=== PATIENT | male | born 2000 | race Hispanic/Latino ===

== ENCOUNTER 2023-07-21 00:36 | Emergency (ER) | payer OTHER, SELFPAY ==
[2023-07-21 00:41] VITALS: BP 180/78; PULSE 120; RESP 20; TEMP 36.4; O2SAT 98; BMI 37.4
[2023-07-21 00:59] LABS: UR Morphine/Opiate cutoff 300 Negative (Negative); Ur Creatinine Normal (Normal); Ur Specific Gravity Normal (Normal); Urine Amphetamines Negative (Negative); Urine Barbiturates Negative (Negative); Urine Benzodiazepines Negative (Negative); Urine Cocaine Negative (Negative); Urine MDMA Negative (Negative); Urine Methadone Negative (Negative); Urine Methamphetamines Negative (Negative); Urine Oxycodone Negative (Negative); Urine Phencyclidine Negative (Negative); Urine Tetrahydrocannabinol Negative (Negative); Urine Tricyclic Antidepressant Negative (Negative); Urine pH Normal (Normal)
[2023-07-21 01:10] LABS: Appearance Urine UA CLEAR; Bilirubin Urine UA NEGATIVE (NEGATIVE); Color Urine UA YELLOW; Glucose Urine UA NEGATIVE (Negative); Ketones Urine UA NEGATIVE (NEGATIVE); Leukocyte Esterase Urine UA NEGATIVE (NEGATIVE); Nitrite Urine UA NEGATIVE (Negative); Occult Blood Urine UA NEGATIVE (Negative); Protein Urine UA NEGATIVE (Negative); Specific Gravity Urine UA <=1.005 (1.000-1.035); Urobilinogen Urine UA 0.2 E.U./dL (0.2); pH Urine UA 5.5 (4.5-8.0)
[2023-07-21 01:25] LABS: Add Manual Diff / Slide Review NO; Basophils Absolute Auto 0 /uL (0-100); Basophils Percent Auto 0.3 % (0-2); Eosinophils Absolute Auto 100 /uL (0-450); Eosinophils Percent Auto 1.4 % (2-4); Hematocrit 43.5 % (41-53); Hemoglobin 15.1 g/dL (13.5-17.5); Lymphocytes Absolute Auto 2900 /uL (1100-4500); Lymphocytes Percent Auto 38.7 % (25-40); Mean Corpuscular HGB Conc 34.7 % (30-36); Mean Corpuscular Hemoglobin 33.6 PG (26-34); Mean Corpuscular Volume 96.8 fL (80-100); Monocytes Absolute Auto 500 /uL (0-900); Monocytes Percent Auto 7.2 % (3-14); Neutrophils Absolute Auto 4000 /uL (1500-7000); Neutrophils Percent Auto 52.4 % (50-75); Platelet Count 194 X10^3/uL (150-400); Red Blood Cell Count 4.49 X10^6/uL (4.5-5.9); Red Cell Distribution Width 13.1 % (11.6-14.8); White Blood Cell Count 7.6 X10^3/uL (4.5-11.0)
[2023-07-21 01:26] LABS: Bacteria Urine None Seen; Culture Indicated Urine Cult Not Indicated; RBC Urine None Seen (0-5/HPF); Squamous Epithelial Cell Urine None Seen (0-5/HPF); WBC Urine None Seen (0-5/HPF)
[2023-07-21 01:29] LABS: Acetaminophen < 10 ug/mL (10-30); Alanine Aminotransferase 70 IU/L (<50); Albumin 4.5 g/dL (3.5-5.0); Albumin Globulin Ratio 1.8 (1.0-2.8); Alkaline Phosphatase 64 U/L (38-126); Aspartate Aminotransferase 33 IU/L (17-59); BUN Creatinine Ratio 11.5 (6-22); Bilirubin Total 0.5 mg/dL (0.2-1.3); Blood Urea Nitrogen 11 mg/dL (9-20); Calcium 8.8 mg/dL (8.4-10.2); Carbon Dioxide 21 mmol/L (22-32); Chloride 101 mmol/L (98-107); Estimated Glomerular Filt Rate > 60 mL/min (>60); Ethanol (ETOH) 270 mg/dL; Globulin 2.5 g/dL (1.7-4.1); Glucose 109 mg/dL (70-100); HEMOLYSIS < 15 (0-50); Potassium 3.6 mmol/L (3.4-5.1); Salicylate < 1.0 mg/dL (<20); Sodium 137 mmol/L (137-145)
[2023-07-21 01:40] VITALS: O2SAT 74
[2023-07-21 01:46] VITALS: BP 132/61; PULSE 103; RESP 18; O2SAT 91
--- NOTE | 2023-07-21 01:49 | PC.NURSE ---
Pt placed on 3L nasal cannula with spO2 >90%. Pt noted to be 74% on RA with snorous respirations. Pt with HOB elevated to about 75 degrees.
[2023-07-21 02:06] LABS: Free T4, Direct Thyroxine 1.36 ng/dL (0.78-2.19)
[2023-07-21 02:21] LABS: Thyroid Stimulating Hormone 2.81 uIU/mL (0.47-4.68)
[2023-07-21 02:42] VITALS: BP 142/60; PULSE 107; RESP 18; O2SAT 96
--- NOTE | 2023-07-21 03:36 | ED_ITS ---
HPI - Altered Mental Status General Chief Complaint: Altered Mental Status Stated Complaint: altered Time Seen by Provider: 07/21/23 01:03 Source: patient and EMS Mode of arrival: Ambulatory History of Present Illness HPI narrative: 23-year-old male nonsmoker admits to drinking alcohol presents by EMS after being found at a local assisted facility. He admits that he had been drinking at a bar and wandered into the lobby and was found sleeping. EMS was called and found him, slurring his words in acting a bit altered. He does not admit to drinking alcohol but denies use of street drugs. He denies any headache, neck pain, trouble breathing no recent trauma or injury. He denies other medical problems. He has no suicidal or homicidal ideations. Review of Systems Review of Systems Narrative: GENERAL: See HPI HEENT: Denies sinus pain, ear pain, sore throat, difficulty swallowing, dizziness. RESPIRATORY: Denies dyspnea, cough, wheezing, hemoptysis, sputum. CARDIOVASCULAR: Denies chest pain, palpitations, orthopnea, edema, GASTROINTESTINAL: Denies nausea, vomiting, abdominal pain, diarrhea, constipation, melena. : Denies dysuria, frequency, incontinence, hematuria, urinary retention. MUSCULOSKELETAL: denies weakness, joint pain, or bony pain SKIN: Denies rash, skin lesions, or other NEUROLOGIC: Denies weakness, headache, numbness, change in speech, confusion, seizures, incoordination. PSYCHIATRIC: No concerning psychosocial issues. 12 point review of systems is negative except for those stated above Patient History Alcohol type: hard liquor Exam Narrative Exam Narrative: GENERAL: [23] year old patient appears stated age. Well-developed patient, bit of an unsteady gait and slurring his words, smells of alcohol s. HEAD: Atraumatic. Normocephalic. No contusion, abrasion or hematoma EYES: Pupils equal round and reactive. Extraocular motions intact. No scleral icterus. No injection or drainage. ENT: Nose without bleeding, purulent drainage. Throat without erythema, tonsillar hypertrophy or exudate. Airway patent. NECK: Trachea midline. Non tender CARDIOVASCULAR: Regular rate and rhythm without murmurs, gallops, or rubs. RESPIRATORY: Clear to auscultation. Breath sounds equal bilaterally. No wheezes, rales, or rhonchi. GASTROINTESTINAL: Abdomen soft, non-tender, nondistended. EXTREMITIES: No edema or joint tenderness. BACK: Nontender without deformity or crepitance. No flank tenderness. NEURO: AOx3. SKIN: No rash or erythema of visible areas Initial Vital Signs Initial Vital Signs: Vital Signs Temperature 97.5 F L 07/21/23 00:41 Pulse Rate 120 H 07/21/23 00:41 Respiratory Rate 20 07/21/23 00:41 Blood Pressure 180/78 H 07/21/23 00:41 Pulse Oximetry 98 07/21/23 00:41 Oxygen Delivery Method Room Air 07/21/23 00:41 Course Orders Ordered: ED Orders 07/21/23 00:43 UA Complete [Urinalysis and Microscopic] Stat Urine Drug Screen, Rapid Stat 07/21/23 01:03 Acetaminophen Stat Complete Blood Count AUTO DIFF Stat Comprehensive Metabolic Panel Stat Ethanol (ETOH) Stat Free T4, Direct Thyroxine Stat Salicylate Stat Thyroid Stimulating Hormone Stat Vital Signs Vital signs: Vital Signs - 8 hr 07/21/23 00:41 07/21/23 01:40 07/21/23 01:46 Temperature 97.5 F L Pulse Rate 120 H 103 H Respiratory Rate 20 18 Blood Pressure 180/78 H 132/61 Pulse Oximetry 98 74 L 91 Oxygen Delivery Method Room Air Room Air Nasal Cannula Oxygen Flow Rate 3 07/21/23 02:42 07/21/23 04:27 Temperature Pulse Rate 107 H 95 H Respiratory Rate 18 99 H Blood Pressure 142/60 H 119/50 L Pulse Oximetry 96 99 Oxygen Delivery Method Nasal Cannula Room Air Nasal Cannula Oxygen Flow Rate 3 2 MDM - Altered Mental Status Lab Data 07/21/23 01:03 07/21/23 01:03 Labs: Lab Results 07/21/23 07/21/23 Range/Units 00:43 01:03 WBC 7.6 (4.5-11.0) X10^3/uL RBC 4.49 L (4.5-5.9) X10^6/uL Hgb 15.1 (13.5-17.5) g/dL Hct 43.5 (41-53) % MCV 96.8 (80-100) fL MCH 33.6 (26-34) PG MCHC 34.7 (30-36) % RDW 13.1 (11.6-14.8) % Plt Count 194 (150-400) X10^3/uL Neut % (Auto) 52.4 (50-75) % Lymph % (Auto) 38.7 (25-40) % Josephine % (Auto) 7.2 (3-14) % Eos % (Auto) 1.4 L (2-4) % Baso % (Auto) 0.3 (0-2) % Neut # (Auto) 4000 (2277-2170) /uL Lymph # (Auto) 2900 (8247-0418) /uL Josephine # (Auto) 500 (0-900) /uL Eos # (Auto) 100 (0-450) /uL Baso # (Auto) 0 (0-100) /uL Sodium 137 (137-145) mmol/L Potassium 3.6 (3.4-5.1) mmol/L Chloride 101 (98-107) mmol/L Carbon Dioxide 21 L (22-32) mmol/L BUN 11 (9-20) mg/dL Creatinine 0.96 (0.66-1.25) mg/dL Estimated GFR > 60 (>60) mL/min BUN/Creatinine Ratio 11.5 (6-22) Glucose 109 H (70-100) mg/dL Calcium 8.8 (8.4-10.2) mg/dL Total Bilirubin 0.5 (0.2-1.3) mg/dL AST 33 (17-59) IU/L ALT 70 H (<50) IU/L Alkaline Phosphatase 64 (38-126) U/L Total Protein 7.0 (6.3-8.2) g/dL Albumin 4.5 (3.5-5.0) g/dL Globulin 2.5 (1.7-4.1) g/dL Albumin/Globulin Ratio 1.8 (1.0-2.8) TSH 2.81 (0.47-4.68) uIU/mL Free T4 1.36 (0.78-2.19) ng/dL Urine Color Yellow Urine Appearance Clear Urine pH 5.5 (4.5-8.0) Ur Specific [place] <=1.005 (1.000-1.035) Urine Protein Negative (Negative) Urine Glucose (UA) Negative (Negative) g/dL Urine Ketones Negative (NEGATIVE) Urine Occult Blood Negative (Negative) Urine Nitrate Negative (Negative) Urine Bilirubin Negative (NEGATIVE) Urine Urobilinogen 0.2 (0.2) E.U./dL Ur Leukocyte Esterase Negative (NEGATIVE) Urine RBC None seen (0-5/HPF) Urine WBC None seen (0-5/HPF) Ur Squamous Epith Cells None seen (0-5/HPF) Urine Bacteria None seen (None) Ur Culture Indicated? Cult not indicated Salicylates < 1.0 (<20) mg/dL U Opiates 300ng/mL cut Negative (Negative) Ur Oxycodone Screen Negative (Negative) Urine Methadone Screen Negative (Negative) Acetaminophen < 10 (10-30) ug/mL Ur Barbiturates Screen Negative (Negative) U Tricyclic Antidepress Negative (Negative) Ur Phencyclidine Scrn Negative (Negative) Ur Amphetamines Screen Negative (Negative) U Methamphetamines Scrn Negative (Negative) Ur MDMA Scrn (Ecstasy) Negative (Negative) U Benzodiazepines Scrn Negative (Negative) Urine Cocaine Screen Negative (Negative) U Marijuana (THC) Screen Negative (Negative) Ethyl Alcohol 270 H ( - 10) mg/dL [facility] Narrative Medical decision making narrative: [] 23 year old patient presents with alcohol intoxication Multiple etiologies for patient's symptoms considered including, but not limited to: [Alcohol versus other illicit drugs versus electrolyte abnormality versus other] Prior Charts reviewed in our EMR Primary Historian: patient Labs reviewed and interpreted by myself: Ethanol 270, otherwise unremarkable, rapid drug negative, electrolytes within normal Patient's history and physical exam reassuring, alcohol level significantly high, patient does admit to drinking tonight but denies other substances. Over the course of the night he rests comfortably and upon waking at about 6:00 a.m. is awake, alert and oriented, speaking clearly, walking straight line and wishes to leave. He certainly has the capacity to make this decision and there is no indication that if further workup is necessary. We called a cab to take him to his hotel Findings and discharge diagnosis discussed with patient/family followed by verbalization of understanding Return precautions discussed with patient/family whom verbalize understanding of diagnosis and plan Discharge Plan Departure Patient Disposition: Home Clinical Impression: Alcoholic intoxication Instructions: Alcohol Use Disorder Activity Restrictions/Additional Instructions: *You have been diagnosed with [alcohol intoxication] *What to do: *Please continue to take your regular medications as directed. [ ] New medication prescriptions sent to your pharmacy: [ ] [ ] New medication written as a paper prescription [ ] No new medications given *Please follow up with your primary care provider in 2-3 days, call for an appointment. Let them know you were seen in the Emergency Department and that we ask that you be seen in follow up. We will electronically transmit a record of today's note if your PCP is in our system *If you do not have a primary care provider please contact the [facility] Resource line at [phone]. They will ask some questions about your medical history and help get you set up with a doctor in the community. *Return to Emergency Department if you should have any new, worsening or concerning symptoms, such as [fever greater than 101 F, shaking chills, worsening pain, persistent vomiting or other bothersome symptoms] Stand Alone Forms: Patient Portal/API
[2023-07-21 04:27] VITALS: BP 119/50; PULSE 95; RESP 99; O2SAT 99
--- NOTE | 2023-07-21 05:56 | PC.NURSE ---
Pt now ambulatory with steady gait to the bathroom, clear speech. Pt states he is unaware of exactly what happened last night, but knows he did drink too much alcohol and his mind was not right. Pt reports he thought he was only a few minutes down from his hotel and he must have walked into the wrong building by mistake. Baron talbert called for patient home.
[2023-07-21 06:01] VITALS: BP 108/63; PULSE 97; RESP 18; O2SAT 96
== END 2023-07-21 06:02 | disposition home or self-care (01) ==
PROVIDERS: Emergency Provider Emergency Medicine
DX: F10.129 Alcohol abuse with intoxication, unspecified (principal); Y90.8 Blood alcohol level of 240 mg/100 ml or more
CPT/HCPCS: 80053; 80305; 80320; 80329; 81001; 84439; 84443; 85025; 99283; 99284; G0480